=== PATIENT | male | born 1985 | race African-American/Black ===

== ENCOUNTER 2017-01-23 08:54 | Inpatient (IN) | payer BC ==
[~2017-01-23] VITALS: Ht 198.1 cm; Wt 141.8 kg
[~2017-01-23 08:54] MED LIST: CEFAZOLIN 1 GM INJ ONE
[2017-01-23 13:31] VITALS: BP 138/86; PULSE 60; RESP 16
--- NOTE | 2017-01-23 14:31 | HPN ---
Date/Time of Note Date/Time of Note DATE: 01/23/17 TIME: 14:29 Interval H&P Admission Note Pt. seen H&P reviewed: No system changes Neurosurgery Preop Note Pt seen and examined Extensive d/w patient about all available options including surgery vs no surgery. Anterior vs Posterior vs Ant/Pos (staged )procedure thoroughly discussed. All risk/complications 3-5% thoroughly discussed. All questions answered and no guarantees given. Pt agreed to proceed with staged procedure. Anterior L3-S1 today with Posterior fixation to follow nest Thursday at 0730. Dispo: ICU SONAL SALOMON MD Jan 23, 2017 14:31
[2017-01-23 14:52] VITALS: Ht 198.1 cm; Wt 141.8 kg
[2017-01-23] MEDS ORDERED: GELATIN SIZE 100 SPONGE ONE (15:07)
[2017-01-23] MEDS ORDERED: THROMBIN 5000 UNIT VIAL ONE (15:07)
[2017-01-23] MEDS ORDERED: HEPARIN 1000 UNITS/ML 10 ML INJ ONE (15:07)
[2017-01-23] MEDS ORDERED: SODIUM CL BACTERIOSTATIC 30 ML INJ ONE (15:08)
[2017-01-23] MEDS ORDERED: MIDAZOLAM 1 MG/ML 2 ML INJ ONE (15:08)
[2017-01-23] MEDS ORDERED: CEFAZOLIN 1 GM INJ ONE (15:08)
[2017-01-23] MEDS ORDERED: NALOXONE (0.4 MG/ML) INJ IV PRN (15:30)
[2017-01-23] MEDS ORDERED: HYDROCODONE/APAP (5/325) TAB PO PRN (15:30)
[2017-01-23] MEDS ORDERED: PHENYLephrine (100 MCG/ML) 5ML SYG ONE (15:41)
[2017-01-23] MEDS ORDERED: morphine 10 MG INJ ONE (16:31)
[2017-01-23] MEDS ORDERED: hydrALAzine 20 MG INJ ONE (16:46)
[2017-01-23] MEDS ORDERED: PROPOFOL 40 ML ONE (18:54)
[2017-01-23] MEDS ORDERED: ROCURONIUM 50 MG INJ ONE (18:54)
[2017-01-23] MEDS ORDERED: GLYCOPYRROLATE 0.4 MG INJ ONE (18:55)
[2017-01-23] MEDS ORDERED: NEOSTIGMINE 3 MG/3 ML SYRINGE ONE (18:55)
[2017-01-23] MEDS ORDERED: METOCLOPRAMIDE 10 MG INJ ONE (18:56)
[2017-01-23] MEDS ORDERED: ONDANSETRON 4 MG INJ ONE (18:56)
--- NOTE | 2017-01-23 18:57 | OPPN ---
Date/Time of Note Date/Time of Note DATE: 01/23/17 TIME: 18:54 Operative Report Preoperative Diagnosis Mechanical LBP and LE radiculopathy Postoperative Diagnosis Same Operation/Procedure Performed Anterior Lumbar fusion L3-S1 Surgeon see signature line office assistant malekmehr Anesthesia: general Estimated blood loss: 100 - 150 ml's Transfusion Required none Specimen sent, lumber disc Grafts/Implants cages and screws Complications none SONAL SALOMON MD Jan 23, 2017 18:57
--- NOTE | 2017-01-23 18:57 | OPPN ---
Date/Time of Note Date/Time of Note DATE: 01/23/17 TIME: 18:54 Operative Report Preoperative Diagnosis Mechanical LBP and LE radiculopathy Postoperative Diagnosis Same Operation/Procedure Performed Anterior Lumbar fusion L3-S1 Surgeon see signature line housekeeping assistant malekmehr Anesthesia: general Estimated blood loss: 100 - 150 ml's Transfusion Required none Specimen sent, lumber disc Grafts/Implants cages and screws Complications none SONAL SALOMON MD Jan 23, 2017 18:57
[2017-01-23] MEDS ORDERED: LIDOCAINE 2% (SDV) 5 ML INJ ONE (18:59)
[2017-01-23] MEDS ORDERED: MIDAZOLAM 1 MG/ML 2 ML INJ IV PRN (19:30)
[2017-01-23] MEDS ORDERED: morphine (1 MG/ML) 10ML SYRINGE IV PRN ×2 (19:30)
[2017-01-23] MEDS ORDERED: FENTAnyl 50 MCG/ML VIAL IV PRN (19:30)
[2017-01-23] MEDS ORDERED: DIPHENHYDRAMINE 50 MG INJ IV PRN (19:30)
[2017-01-23] MEDS ORDERED: HYDROmorphONE (0.2 MG/ML) 10ML SYG IV PRN ×2 (19:30)
[2017-01-23] MEDS ORDERED: ALBUTEROL 0.083% (NEB) 2.5 MG/3 ML AMP HHN PRN (19:30)
[2017-01-23] MEDS ORDERED: MEPERIDINE 25 MG INJ IV PRN (19:30)
[2017-01-23] MEDS ORDERED: METOCLOPRAMIDE 10 MG INJ IV PRN (19:30)
[2017-01-23] MEDS ORDERED: LORAZEPAM 2 MG INJ IV PRN (19:30)
[2017-01-23] MEDS ORDERED: ONDANSETRON 4 MG INJ IV PRN (19:30)
[2017-01-23 19:47] VITALS: PULSE 106
[2017-01-23 20:00] VITALS: BP 187/92; PULSE 102; PULSE 106; RESP 21
[2017-01-23] MEDS: NS + KCL 20 MEQ 1,000 ML IV SCH (20:20)
[2017-01-23 21:00] VITALS: BP 156/79; PULSE 105; RESP 15
[2017-01-23] MEDS ORDERED: hydrALAzine 20 MG INJ IV PRN (21:00)
[2017-01-23] MEDS: HYDROmorphONE 0.2 MG/ML PCA IV SCH (21:05)
[2017-01-23] MEDS: DOCUSATE SODIUM 100 MG CAP PO SCH ×2 (21:22→21:25)
[2017-01-23] MEDS: METOPROLOL 50 MG TAB PO SCH (21:22)
[2017-01-23 22:00] VITALS: BP 144/64; PULSE 114; RESP 21
[2017-01-23 23:00] VITALS: BP 154/65; PULSE 122; RESP 19
[2017-01-24] VITALS (21 sets, daily range): BP systolic 103–166; BP diastolic 58–133; PULSE 70–115; RESP 14–25
[2017-01-24] MEDS: NS + KCL 20 MEQ 1,000 ML IV SCH ×2 (01:30→21:23)
--- NOTE | 2017-01-24 04:57 | OPR ---
DATE OF OPERATION: PREOPERATIVE DIAGNOSIS: Degenerative disk disease, lumbosacral spine. POSTOPERATIVE DIAGNOSIS: Degenerative disk disease, lumbosacral spine. PROCEDURES: 1. Anterior retroperitoneal exposure and interbody fusion, lumbosacral spine. 2. Anterior retroperitoneal exposure and interbody fusion, L4-L5. 3. Anterior retroperitoneal exposure and interbody fusion, L5-S1. SURGEON: Dr. Mccall. ANESTHESIA: General. COSURGEON: Dr. Muro. CONSENT: Risks, benefits, complications, alternative therapies, high-risk nature of the operation w ere fully explained to the patient and the family. Consent obtained. Risks and benefits explained to the patient and family included but not limited to bleeding, infection, damage to the bowel, danna ge to the ureter, wound infection, wound dehiscence, need for further surgery, DVT, PE, loss of limb , loss of life, and others. All questions answered. OPERATIVE TECHNIQUE: The patient was placed in supine position, prepped and draped in the usual haris rile fashion. I made a 10 cm incision in the left lower quadrant to the left of the umbilicus. The incision was taken down to the subcutaneous tissue which was then opened using electrocautery. Th e anterior rectus sheath was opened in the direction of the wound. Posterior rectus sheath was open ed 3 cm superiorly. Bookwalter retractor was placed retracting the bowel contents to the right and left rectus muscle to the left. The left common iliac artery and vein, external iliac artery and ve in was dissected and the left iliolumbar veins and the middle sacral vessels and the lowest lumbar a rtery and vein were transected using titanium clips and ____ silk sutures. The exposure for L3-L4 a nd L4-L5 was obtained by retracting the left common iliac artery and vein and vena cava and aorta to the right. Exposure for L5-S1 was obtained by retracting the right and left common iliac artery an d vein laterally. We proceeded with diskectomy and placement of the new cage. Please refer to Dr. Muro's dictation for the details of that operation. After all the x-rays were satisfactorily read by Dr. Muro, needle count and sponge count were correct. No evidence of any bleeding was noted. T he wound was irrigated using antibiotic solution. Posterior rectus sheath was closed using 0 Vicryl suture in a running fashion. The anterior rectus sheath was irrigated again and closed with 2 laye rs of 2-0 Vicryl suture for subQ, 4-0 Monocryl suture for running subcuticular skin closure. Steri- Strips were applied. The patient tolerated the procedure well. Dictated By: ANAND JETT/CECY Conf#: [id number] DID#: [id number]
--- NOTE | 2017-01-24 08:37 | RADRPT ---
PROCEDURE: Intraoperative imaging of the lumbar spine with fluoroscopy. CLINICAL INDICATION: Back pain. Intraoperative. TECHNIQUE: 7 images of the lumbar spine were obtained in the operating room with an image intensif ier. No radiologist was in attendance. Fluoroscopy time is 10 seconds. COMPARISON: No prior study is available for comparison. FINDINGS: For the purposes of this report, the last apparent true disc level is considered to be L5-S1. Based on this, images demonstrate anterior fusion with screws at L3-4, L4-5, and L5-S1. IMPRESSION: 1. Intraoperative imaging of the lumbar spine. RPTAT: QQ .Ata Catherine MD, MD Date Time Electronically viewed and signed by .Ata Catherine MD, on 01/24/2017 08:37 .R/
--- NOTE | 2017-01-24 08:49 | RADRPT ---
PROCEDURE: CT L-Spine. CLINICAL INDICATION: Back pain ; postoperative TECHNIQUE: A CT of the lumbar spine was performed on a multidetector CT scanner utilizing axial im ages from the thoracic lumbar junction through the lumbar sacral junction. Sagittal and coronal ref ormatted images were made. The CTDIvol is 90mGy and the DLP is 2789mGycm. One or more of the followi ng dose reduction techniques were used: Automated exposure control, Adjustment of the mA and/or kV a ccording to patient size, and/or use of iterative reconstruction technique. COMPARISON: None available. FINDINGS: Status post anterior interbody fusion of L3 through S1. Hardware appears intact. Osseous erosive change from the inferior endplate of L3 extending superiorly to the left aspect of t he L3 vertebral body with surrounding sclerosis measures approximately 1.7 cm anteroposterior and 2 cm cranial-caudal. This could be due to postoperative change. No evidence of an acute lumbar vertebral compression fracture. 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 L1-2: The disk space height is maintained. Small disc bulging without significant foraminal narrowi ng. AP thecal sac diameter measures 9 mm. L2-3: The disk space height is maintained. Small disc bulge with mild bilateral foraminal narrowing . AP thecal sac diameter of 9 mm. L3-4: Surgical changes noted. Small to moderate circumferential disc bulging. AP thecal sac diameter of 8 mm. Mild bilateral foraminal narrowing. L4-5: Surgical changes noted. Small to moderate circumferential disc bulging. AP thecal sac diameter of 8 mm. Mild bilateral foraminal narrowing. L5-1: Surgical changes noted. Moderate disc bulging extending to the foramen bilaterally with modera te bilateral foraminal narrowing. AP thecal sac diameter of 9 mm. Small amount of retroperitoneal inflammatory stranding and retroperitoneal free air is presumably re lated to recent surgery. IMPRESSION: Status post anterior interbody fusion of L3 through S1. Hardware appears intact. Congenital narrowing of the lumbar spinal canal with superimposed disk bulging as detailed. RPTAT: AA .Marcin Fletcher MD, MD Date Time Electronically viewed and signed by .Marcin Fletcher MD, on 01/24/2017 08:48 .T/
--- NOTE | 2017-01-24 09:09 | PN ---
Date/Time of Note Date/Time of Note DATE: 01/24/17 TIME: 09:08 Assessment/Plan VTE Prophylaxis VTE Prophylaxis Intervention: other Lines/Catheters IV Catheter Type (from Nrsg): Peripheral IV Urinary Cath still in place: Yes Reason Cath still needed: skin wounds contaminated by urine Assessment/Plan Chief Complaint/Hosp Course 1) back pain - s/p anterior Lumbar fusion L3-S1 - postop care Problems: Subjective 24 Hr Interval Summary Free Text/Dictation Patient complain of back pain Exam/Review of Systems Vital Signs Vitals Vital Signs Date Time Temp Pulse Resp B/P Pulse Ox O2 Delivery O2 Flow Rate FiO2 01/24/17 06:00 94 22 150/72 98 Room Air 01/24/17 04:00 99.6 01/24/17 01:06 4.0 33 Intake and Output 01/23/17 01/23/17 01/24/17 15:00 23:00 07:00 Intake Total 1400 ml 1300 ml Output Total 850 ml 900 ml Balance 550 ml 400 ml Exam Constitutional: well developed Head: atraumatic, normocephalic Neck: supple Respiratory: clear to auscultation Cardiovascular: regular rate and rhythm Gastrointestinal: non-tender, soft Extremities: normal pulses Results Result Diagram: 01/24/17 0430 01/24/17 0430 Results 24 hrs Laboratory Tests Test 01/24/17 04:30 White Blood Count 11.8 H Red Blood Count 4.81 Hemoglobin 15.1 Hematocrit 44.6 Mean Corpuscular Volume 92.7 Mean Corpuscular Hemoglobin 31.4 Mean Corpuscular Hemoglobin Concent 33.9 Red Cell Distribution Width 12.0 Platelet Count 211 Mean Platelet Volume 10.6 H Neutrophils % 82.5 H Lymphocytes % 6.7 L Monocytes % 10.4 Eosinophils % 0.0 Basophils % 0.1 Nucleated Red Blood Cells % 0.0 Neutrophils # 9.7 H Lymphocytes # 0.8 Monocytes # 1.2 H Eosinophils # 0.0 Basophils # 0.0 Nucleated Red Blood Cells # 0.0 Sodium Level 140 Potassium Level 4.1 Chloride Level 106 Carbon Dioxide Level 26 Anion Gap 12 Blood Urea Nitrogen 11 Creatinine 1.07 Glucose Level 114 Calcium Level 8.9 Medications Medications Current Medications Acetaminophen/ Hydrocodone Bitart ([place] (5/325)) 2 tab Q4H PRN PO PAIN LEVEL 6 -10; Start 01/23/17 at 15:30 Docusate Sodium (Colace) 100 mg BID PO Last administered on 01/23/17 21:25; Admin Dose 100 MG; Start 01/23/17 at 15:30 Hydromorphone HCl (Dilaudid KAI WHAKARURUHAU) Q4PCA IV Last administered on 01/23/17 21: 05; Admin Dose 6 MG; Start 01/23/17 at 15:30 Naloxone HCl 0.2 mg 0.2 mg Q2M PRN IV RR 8 BREATHS/MIN OR LESS; Start at 15:30 Potassium Chloride/Sodium Chloride (NS-KCl 20 Meq) 1,000 ml @ 100 mls/hr Q10H IV Last administered on 01/23/17 20:20; Admin Dose 100 MLS/HR; Start at 15:30 Metoprolol Tartrate (Lopressor) 50 mg BID PO Last administered on 01/23/17 21 :22; Admin Dose 50 MG; Start 01/23/17 at 21:00 Hydralazine HCl (Apresoline) 20 mg Q4H PRN IV SBP > 170 Last administered on 22:39; Admin Dose 20 MG; Start 01/23/17 at 21:00 NII SCHUSTER Jan 24, 2017 09:09
[2017-01-24] MEDS: DOCUSATE SODIUM 100 MG CAP PO SCH ×2 (09:20→21:22)
[2017-01-24] MEDS: METOPROLOL 50 MG TAB PO SCH ×2 (09:23→21:22)
--- NOTE | 2017-01-24 09:56 | PN ---
Date/Time of Note Date/Time of Note DATE: 01/24/17 TIME: 09:52 Assessment/Plan VTE Prophylaxis VTE Prophylaxis Intervention: SCD's Lines/Catheters IV Catheter Type (from Nrsg): Peripheral IV Central line still needed: No Urinary Cath still in place: No Assessment/Plan Assessment/Plan Impression Mechanical LBP with LE radiculopathy s/p ALIF L3-S1 . POD #[address] Lspine stable with properly . Images reviewed with patient at bedside Plan okay to downgrade from NS point of view encourage IS x 10 WA LSO brace when OOB pt/ot with brace x 6 weeks stamping operator and ivf for now plan for posterior fixation on Thursday at 0730. OR did not have available time on Thursday. Subjective 24 Hr Interval Summary Free Text/Dictation S: s/p ALIF L3-S1. POD #1 Expected surgical site pain , well controlled with CONTRACT ACCOUNTANT low grade temp 99.4 Denies LE radic pain Exam/Review of Systems Vital Signs Vitals Vital Signs Date Time Temp Pulse Resp B/P Pulse Ox O2 Delivery O2 Flow Rate FiO2 01/24/17 06:00 94 22 150/72 98 Room Air 01/24/17 04:00 99.6 01/24/17 01:06 4.0 33 Intake and Output 01/23/17 01/23/17 01/24/17 15:00 23:00 07:00 Intake Total 1400 ml 1300 ml Output Total 850 ml 900 ml Balance 550 ml 400 ml Exam Neurological: other (MS: AAOX4 CN: PERRL M: FC x 4 , 5/5 strength S: Grossly intact, denies LE radic pain ) Results Result Diagram: 01/24/17 0430 01/24/17 0430 Results 24 hrs Laboratory Tests Test 01/24/17 04:30 White Blood Count 11.8 H Red Blood Count 4.81 Hemoglobin 15.1 Hematocrit 44.6 Mean Corpuscular Volume 92.7 Mean Corpuscular Hemoglobin 31.4 Mean Corpuscular Hemoglobin Concent 33.9 Red Cell Distribution Width 12.0 Platelet Count 211 Mean Platelet Volume 10.6 H Neutrophils % 82.5 H Lymphocytes % 6.7 L Monocytes % 10.4 Eosinophils % 0.0 Basophils % 0.1 Nucleated Red Blood Cells % 0.0 Neutrophils # 9.7 H Lymphocytes # 0.8 Monocytes # 1.2 H Eosinophils # 0.0 Basophils # 0.0 Nucleated Red Blood Cells # 0.0 Sodium Level 140 Potassium Level 4.1 Chloride Level 106 Carbon Dioxide Level 26 Anion Gap 12 Blood Urea Nitrogen 11 Creatinine 1.07 Glucose Level 114 Calcium Level 8.9 Medications Medications Current Medications Acetaminophen/ Hydrocodone Bitart ([place] (5/325)) 2 tab Q4H PRN PO PAIN LEVEL 6 -10; Start 01/23/17 at 15:30 Docusate Sodium (Colace) 100 mg BID PO Last administered on 01/24/17 09:20; Admin Dose 100 MG; Start 01/23/17 at 15:30 Hydromorphone HCl (Dilaudid CONTRACT ACCOUNTANT) Q4PCA IV Last administered on 01/23/17 21: 05; Admin Dose 6 MG; Start 01/23/17 at 15:30 Naloxone HCl 0.2 mg 0.2 mg Q2M PRN IV RR 8 BREATHS/MIN OR LESS; Start at 15:30 Potassium Chloride/Sodium Chloride (NS-KCl 20 Meq) 1,000 ml @ 100 mls/hr Q10H IV Last administered on 01/23/17 20:20; Admin Dose 100 MLS/HR; Start at 15:30 Metoprolol Tartrate (Lopressor) 50 mg BID PO Last administered on 01/24/17 09 :23; Admin Dose 50 MG; Start 01/23/17 at 21:00 Hydralazine HCl (Apresoline) 20 mg Q4H PRN IV SBP > 170 Last administered on 22:39; Admin Dose 20 MG; Start 01/23/17 at 21:00 HAZEL ACEVEDO NP Jan 24, 2017 09:56
--- NOTE | 2017-01-24 09:56 | PN ---
Date/Time of Note Date/Time of Note DATE: 01/24/17 TIME: 09:52 Assessment/Plan VTE Prophylaxis VTE Prophylaxis Intervention: SCD's Lines/Catheters IV Catheter Type (from Nrsg): Peripheral IV Central line still needed: No Urinary Cath still in place: No Assessment/Plan Assessment/Plan Impression Mechanical LBP with LE radiculopathy s/p ALIF L3-S1 . POD #[address] Lspine stable with properly . Images reviewed with patient at bedside Plan okay to downgrade from NS point of view encourage IS x 10 WA LSO brace when OOB pt/ot with brace x 6 weeks payroll director and ivf for now plan for posterior fixation on Thursday at 0730. OR did not have available time on Thursday. Subjective 24 Hr Interval Summary Free Text/Dictation S: s/p ALIF L3-S1. POD #1 Expected surgical site pain , well controlled with AIR HOSE COUPLER low grade temp 99.4 Denies LE radic pain Exam/Review of Systems Vital Signs Vitals Vital Signs Date Time Temp Pulse Resp B/P Pulse Ox O2 Delivery O2 Flow Rate FiO2 01/24/17 06:00 94 22 150/72 98 Room Air 01/24/17 04:00 99.6 01/24/17 01:06 4.0 33 Intake and Output 01/23/17 01/23/17 01/24/17 15:00 23:00 07:00 Intake Total 1400 ml 1300 ml Output Total 850 ml 900 ml Balance 550 ml 400 ml Exam Neurological: other (MS: AAOX4 CN: PERRL M: FC x 4 , 5/5 strength S: Grossly intact, denies LE radic pain ) Results Result Diagram: 01/24/17 0430 01/24/17 0430 Results 24 hrs Laboratory Tests Test 01/24/17 04:30 White Blood Count 11.8 H Red Blood Count 4.81 Hemoglobin 15.1 Hematocrit 44.6 Mean Corpuscular Volume 92.7 Mean Corpuscular Hemoglobin 31.4 Mean Corpuscular Hemoglobin Concent 33.9 Red Cell Distribution Width 12.0 Platelet Count 211 Mean Platelet Volume 10.6 H Neutrophils % 82.5 H Lymphocytes % 6.7 L Monocytes % 10.4 Eosinophils % 0.0 Basophils % 0.1 Nucleated Red Blood Cells % 0.0 Neutrophils # 9.7 H Lymphocytes # 0.8 Monocytes # 1.2 H Eosinophils # 0.0 Basophils # 0.0 Nucleated Red Blood Cells # 0.0 Sodium Level 140 Potassium Level 4.1 Chloride Level 106 Carbon Dioxide Level 26 Anion Gap 12 Blood Urea Nitrogen 11 Creatinine 1.07 Glucose Level 114 Calcium Level 8.9 Medications Medications Current Medications Acetaminophen/ Hydrocodone Bitart ([place] (5/325)) 2 tab Q4H PRN PO PAIN LEVEL 6 -10; Start 01/23/17 at 15:30 Docusate Sodium (Colace) 100 mg BID PO Last administered on 01/24/17 09:20; Admin Dose 100 MG; Start 01/23/17 at 15:30 Hydromorphone HCl (Dilaudid AIR HOSE COUPLER) Q4PCA IV Last administered on 01/23/17 21: 05; Admin Dose 6 MG; Start 01/23/17 at 15:30 Naloxone HCl 0.2 mg 0.2 mg Q2M PRN IV RR 8 BREATHS/MIN OR LESS; Start at 15:30 Potassium Chloride/Sodium Chloride (NS-KCl 20 Meq) 1,000 ml @ 100 mls/hr Q10H IV Last administered on 01/23/17 20:20; Admin Dose 100 MLS/HR; Start at 15:30 Metoprolol Tartrate (Lopressor) 50 mg BID PO Last administered on 01/24/17 09 :23; Admin Dose 50 MG; Start 01/23/17 at 21:00 Hydralazine HCl (Apresoline) 20 mg Q4H PRN IV SBP > 170 Last administered on 22:39; Admin Dose 20 MG; Start 01/23/17 at 21:00 HAZEL ACEVEDO NP Jan 24, 2017 09:56
[2017-01-25 01:55] VITALS: BP 138/67; PULSE 78; RESP 17
[2017-01-25 07:25] VITALS: BP 138/68; RESP 18
[2017-01-25] MEDS: NS + KCL 20 MEQ 1,000 ML IV SCH ×2 (09:01→17:44)
[2017-01-25] MEDS: DOCUSATE SODIUM 100 MG CAP PO SCH ×2 (09:11→21:24)
[2017-01-25] MEDS: METOPROLOL 50 MG TAB PO SCH ×2 (09:12→21:24)
[2017-01-25] MEDS: HYDROmorphONE 0.2 MG/ML PCA IV SCH (09:13)
--- NOTE | 2017-01-25 11:14 | PN ---
Date/Time of Note Date/Time of Note DATE: 01/25/17 TIME: 11:14 Assessment/Plan VTE Prophylaxis VTE Prophylaxis Intervention: other Lines/Catheters IV Catheter Type (from Nrsg): Peripheral IV Urinary Cath still in place: No Assessment/Plan Chief Complaint/Hosp Course 1) back pain - s/p anterior Lumbar fusion L3-S1 - postop care Problems: Subjective 24 Hr Interval Summary Free Text/Dictation Patient has back pain, doing ok, to have another procedure on Thursday Exam/Review of Systems Vital Signs Vitals Vital Signs Date Time Temp Pulse Resp B/P Pulse Ox O2 Delivery O2 Flow Rate FiO2 01/25/17 07:25 98.5 75 18 138/68 95 01/25/17 02:15 Nasal Cannula 2.0 01/24/17 15:57 21 Intake and Output 01/24/17 01/24/17 01/25/17 15:00 23:00 07:00 Intake Total 1220 ml 400 ml Output Total 805 ml 75 ml Balance 415 ml -75 ml 400 ml Exam Constitutional: well developed Head: atraumatic, normocephalic Neck: supple Respiratory: clear to auscultation Cardiovascular: regular rate and rhythm Gastrointestinal: non-tender, soft Extremities: normal pulses Results Result Diagram: 01/24/17 0430 01/24/17 0430 Results 24 hrs Laboratory Tests Test 01/25/17 01:52 Bedside Glucose 110 Medications Medications Current Medications Acetaminophen/ Hydrocodone Bitart ([place] (5/325)) 2 tab Q4H PRN PO PAIN LEVEL 6 -10; Start 01/23/17 at 15:30 Docusate Sodium (Colace) 100 mg BID PO Last administered on 01/25/17 09:11; Admin Dose 100 MG; Start 01/23/17 at 15:30 Hydromorphone HCl (Dilaudid WIRE DRAWING MACHINE OPERATOR) Q4PCA IV Last administered on 01/25/17 09: 13; Admin Dose 6 MG; Start 01/23/17 at 15:30 Naloxone HCl 0.2 mg 0.2 mg Q2M PRN IV RR 8 BREATHS/MIN OR LESS; Start at 15:30 Potassium Chloride/Sodium Chloride (NS-KCl 20 Meq) 1,000 ml @ 50 mls/hr Q20H IV Last administered on 01/24/17 21:23; Admin Dose 50 MLS/HR; Start at 15:30 Metoprolol Tartrate (Lopressor) 50 mg BID PO Last administered on 01/25/17 09 :12; Admin Dose 50 MG; Start 01/23/17 at 21:00 Hydralazine HCl (Apresoline) 20 mg Q4H PRN IV SBP > 170 Last administered on 22:39; Admin Dose 20 MG; Start 01/23/17 at 21:00 NII SCHUSTER Jan 25, 2017 11:14
--- NOTE | 2017-01-25 11:14 | PN ---
Date/Time of Note Date/Time of Note DATE: 01/25/17 TIME: 11:14 Assessment/Plan VTE Prophylaxis VTE Prophylaxis Intervention: other Lines/Catheters IV Catheter Type (from Nrsg): Peripheral IV Urinary Cath still in place: No Assessment/Plan Chief Complaint/Hosp Course 1) back pain - s/p anterior Lumbar fusion L3-S1 - postop care Problems: Subjective 24 Hr Interval Summary Free Text/Dictation Patient has back pain, doing ok, to have another procedure on Thursday Exam/Review of Systems Vital Signs Vitals Vital Signs Date Time Temp Pulse Resp B/P Pulse Ox O2 Delivery O2 Flow Rate FiO2 01/25/17 07:25 98.5 75 18 138/68 95 01/25/17 02:15 Nasal Cannula 2.0 01/24/17 15:57 21 Intake and Output 01/24/17 01/24/17 01/25/17 15:00 23:00 07:00 Intake Total 1220 ml 400 ml Output Total 805 ml 75 ml Balance 415 ml -75 ml 400 ml Exam Constitutional: well developed Head: atraumatic, normocephalic Neck: supple Respiratory: clear to auscultation Cardiovascular: regular rate and rhythm Gastrointestinal: non-tender, soft Extremities: normal pulses Results Result Diagram: 01/24/17 0430 01/24/17 0430 Results 24 hrs Laboratory Tests Test 01/25/17 01:52 Bedside Glucose 110 Medications Medications Current Medications Acetaminophen/ Hydrocodone Bitart ([place] (5/325)) 2 tab Q4H PRN PO PAIN LEVEL 6 -10; Start 01/23/17 at 15:30 Docusate Sodium (Colace) 100 mg BID PO Last administered on 01/25/17 09:11; Admin Dose 100 MG; Start 01/23/17 at 15:30 Hydromorphone HCl (Dilaudid HELIX COIL WINDER) Q4PCA IV Last administered on 01/25/17 09: 13; Admin Dose 6 MG; Start 01/23/17 at 15:30 Naloxone HCl 0.2 mg 0.2 mg Q2M PRN IV RR 8 BREATHS/MIN OR LESS; Start at 15:30 Potassium Chloride/Sodium Chloride (NS-KCl 20 Meq) 1,000 ml @ 50 mls/hr Q20H IV Last administered on 01/24/17 21:23; Admin Dose 50 MLS/HR; Start at 15:30 Metoprolol Tartrate (Lopressor) 50 mg BID PO Last administered on 01/25/17 09 :12; Admin Dose 50 MG; Start 01/23/17 at 21:00 Hydralazine HCl (Apresoline) 20 mg Q4H PRN IV SBP > 170 Last administered on 22:39; Admin Dose 20 MG; Start 01/23/17 at 21:00 NII SCHUSTER Jan 25, 2017 11:14
--- NOTE | 2017-01-25 12:43 | PN ---
Date/Time of Note Date/Time of Note DATE: 01/25/17 TIME: 12:41 Assessment/Plan VTE Prophylaxis VTE Prophylaxis Intervention: ambulation, SCD's Lines/Catheters IV Catheter Type (from Nrsg): Peripheral IV Central line still needed: No Urinary Cath still in place: No Assessment/Plan Assessment/Plan s/p ALIF L3-S1 . POD #2 doing well HTN - stable ambulating well voiding well denies LE radic pain Plan cont supportive care IS x x 10 when awake pt/ot with LSO brace Posterior fixation L3-S1 on Thursday. Subjective 24 Hr Interval Summary Free Text/Dictation S: s/p ALIF L3-S1. POD #2 doing well with pt/ot low grade , encouraged IS x 10 denies LE radic ain Exam/Review of Systems Vital Signs Vitals Vital Signs Date Time Temp Pulse Resp B/P Pulse Ox O2 Delivery O2 Flow Rate FiO2 01/25/17 07:45 Nasal Cannula 2.0 01/25/17 07:25 98.5 75 18 138/68 95 01/24/17 15:57 21 Intake and Output 01/24/17 01/24/17 01/25/17 15:00 23:00 07:00 Intake Total 1220 ml 400 ml Output Total 805 ml 75 ml Balance 415 ml -75 ml 400 ml Exam Neurological: other (MS: AAOX4 CN: PERRL M: FC x 4 , 5/5 strength) Results Result Diagram: 01/24/17 0430 01/24/17 0430 Results 24 hrs Laboratory Tests Test 01/25/17 01:52 Bedside Glucose 110 Medications Medications Current Medications Acetaminophen/ Hydrocodone Bitart ([place] (5/325)) 2 tab Q4H PRN PO PAIN LEVEL 6 -10; Start 01/23/17 at 15:30 Docusate Sodium (Colace) 100 mg BID PO Last administered on 01/25/17 09:11; Admin Dose 100 MG; Start 01/23/17 at 15:30 Hydromorphone HCl (Dilaudid NET PROGRAMMER ANALYST) Q4PCA IV Last administered on 01/25/17 09: 13; Admin Dose 6 MG; Start 01/23/17 at 15:30 Naloxone HCl 0.2 mg 0.2 mg Q2M PRN IV RR 8 BREATHS/MIN OR LESS; Start at 15:30 Potassium Chloride/Sodium Chloride (NS-KCl 20 Meq) 1,000 ml @ 50 mls/hr Q20H IV Last administered on 01/24/17 21:23; Admin Dose 50 MLS/HR; Start at 15:30 Metoprolol Tartrate (Lopressor) 50 mg BID PO Last administered on 01/25/17 09 :12; Admin Dose 50 MG; Start 01/23/17 at 21:00 Hydralazine HCl (Apresoline) 20 mg Q4H PRN IV SBP > 170 Last administered on 22:39; Admin Dose 20 MG; Start 01/23/17 at 21:00 HAZEL ACEVEDO NP Jan 25, 2017 12:43
[2017-01-25 14:30] VITALS: BP 163/68; PULSE 76; RESP 20
[2017-01-25 14:47] VITALS: BP_SYST 91; RESP 18
[2017-01-25 15:00] VITALS: BP 158/69; PULSE 78; RESP 20
[2017-01-25 19:52] VITALS: BP 141/78; RESP 18
[2017-01-26 01:57] VITALS: BP 147/82; RESP 18
[2017-01-26 07:20] VITALS: BP 129/64; RESP 20
[2017-01-26] MEDS: DOCUSATE SODIUM 100 MG CAP PO SCH ×2 (09:00→20:20)
[2017-01-26] MEDS: METOPROLOL 50 MG TAB PO SCH ×2 (09:02→20:20)
--- NOTE | 2017-01-26 11:11 | PN ---
Date/Time of Note Date/Time of Note DATE: 01/26/17 TIME: 11:08 Assessment/Plan VTE Prophylaxis VTE Prophylaxis Intervention: SCD's Lines/Catheters IV Catheter Type (from Nrsg): Peripheral IV Urinary Cath still in place: No Assessment/Plan Assessment/Plan s/p L3-S1 ALIF. Doing well with pt/ot low grade temp, encourage IS x 10 denie LE radic pain plan Cont supportive care npo after mn cbc,bmp,pt/ptt plan for posterior L3-S1 ISF with possible decompression Subjective 24 Hr Interval Summary Free Text/Dictation S: NAD denies LE radic pain Exam/Review of Systems Vital Signs Vitals Vital Signs Date Time Temp Pulse Resp B/P Pulse Ox O2 Delivery O2 Flow Rate FiO2 01/26/17 07:20 98.1 68 20 129/64 97 01/25/17 21:00 Nasal Cannula 2.0 01/24/17 15:57 21 Intake and Output 01/25/17 01/25/17 01/26/17 15:00 23:00 07:00 Intake Total 400 ml 700 ml 1230 ml Output Total 1300 ml 1000 ml Balance -900 ml 700 ml 230 ml Exam Psych: no complaints Neurological: other (MS: AAOX4 CN: PERRL M: FC x 4 , 5/5 strength S: denies LE radic pain ) Results Result Diagram: 01/24/17 0430 01/24/17 0430 Medications Medications Current Medications Acetaminophen/ Hydrocodone Bitart ([place] (5/325)) 2 tab Q4H PRN PO PAIN LEVEL 6 -10; Start 01/23/17 at 15:30 Docusate Sodium (Colace) 100 mg BID PO Last administered on 01/25/17 21:24; Admin Dose 100 MG; Start 01/23/17 at 15:30 Hydromorphone HCl (Dilaudid CERTIFIED FORKLIFT OPERATOR) Q4PCA IV Last administered on 01/25/17 09: 13; Admin Dose 6 MG; Start 01/23/17 at 15:30 Naloxone HCl 0.2 mg 0.2 mg Q2M PRN IV RR 8 BREATHS/MIN OR LESS; Start at 15:30 Potassium Chloride/Sodium Chloride (NS-KCl 20 Meq) 1,000 ml @ 50 mls/hr Q20H IV Last administered on 01/25/17 17:44; Admin Dose 50 MLS/HR; Start at 15:30 Metoprolol Tartrate (Lopressor) 50 mg BID PO Last administered on 01/26/17 09 :02; Admin Dose 50 MG; Start 01/23/17 at 21:00 Hydralazine HCl (Apresoline) 20 mg Q4H PRN IV SBP > 170 Last administered on 22:39; Admin Dose 20 MG; Start 01/23/17 at 21:00 HAZEL ACEVEDO NP Jan 26, 2017 11:10
--- NOTE | 2017-01-26 11:11 | PN ---
Date/Time of Note Date/Time of Note DATE: 01/26/17 TIME: 11:08 Assessment/Plan VTE Prophylaxis VTE Prophylaxis Intervention: SCD's Lines/Catheters IV Catheter Type (from Nrsg): Peripheral IV Urinary Cath still in place: No Assessment/Plan Assessment/Plan s/p L3-S1 ALIF. Doing well with pt/ot low grade temp, encourage IS x 10 denie LE radic pain plan Cont supportive care npo after mn cbc,bmp,pt/ptt plan for posterior L3-S1 ISF with possible decompression Subjective 24 Hr Interval Summary Free Text/Dictation S: NAD denies LE radic pain Exam/Review of Systems Vital Signs Vitals Vital Signs Date Time Temp Pulse Resp B/P Pulse Ox O2 Delivery O2 Flow Rate FiO2 01/26/17 07:20 98.1 68 20 129/64 97 01/25/17 21:00 Nasal Cannula 2.0 01/24/17 15:57 21 Intake and Output 01/25/17 01/25/17 01/26/17 15:00 23:00 07:00 Intake Total 400 ml 700 ml 1230 ml Output Total 1300 ml 1000 ml Balance -900 ml 700 ml 230 ml Exam Psych: no complaints Neurological: other (MS: AAOX4 CN: PERRL M: FC x 4 , 5/5 strength S: denies LE radic pain ) Results Result Diagram: 01/24/17 0430 01/24/17 0430 Medications Medications Current Medications Acetaminophen/ Hydrocodone Bitart ([place] (5/325)) 2 tab Q4H PRN PO PAIN LEVEL 6 -10; Start 01/23/17 at 15:30 Docusate Sodium (Colace) 100 mg BID PO Last administered on 01/25/17 21:24; Admin Dose 100 MG; Start 01/23/17 at 15:30 Hydromorphone HCl (Dilaudid [employer]) Q4PCA IV Last administered on 01/25/17 09: 13; Admin Dose 6 MG; Start 01/23/17 at 15:30 Naloxone HCl 0.2 mg 0.2 mg Q2M PRN IV RR 8 BREATHS/MIN OR LESS; Start at 15:30 Potassium Chloride/Sodium Chloride (NS-KCl 20 Meq) 1,000 ml @ 50 mls/hr Q20H IV Last administered on 01/25/17 17:44; Admin Dose 50 MLS/HR; Start at 15:30 Metoprolol Tartrate (Lopressor) 50 mg BID PO Last administered on 01/26/17 09 :02; Admin Dose 50 MG; Start 01/23/17 at 21:00 Hydralazine HCl (Apresoline) 20 mg Q4H PRN IV SBP > 170 Last administered on 22:39; Admin Dose 20 MG; Start 01/23/17 at 21:00 HAZEL ACEVEDO NP Jan 26, 2017 11:10
[2017-01-26] MEDS: NS + KCL 20 MEQ 1,000 ML IV SCH (14:22)
[2017-01-26 14:45] VITALS: BP 143/71; RESP 20
--- NOTE | 2017-01-26 16:03 | PN ---
Date/Time of Note Date/Time of Note DATE: 01/26/17 TIME: 15:58 Assessment/Plan VTE Prophylaxis VTE Prophylaxis Intervention: SCD's Lines/Catheters IV Catheter Type (from Nrs): Peripheral IV Urinary Cath still in place: No Assessment/Plan Chief Complaint/Hosp Course Patient is awake alert, pain is well controlled on Dilaudid BUNDLE WRAPPER. Problems: Assessment/Plan -Low back pain and left extremity radiculopathy. Status post anterior lumbar fusion of L3-S1 by Dr. Muro. Pending posterior fixator fixation tomorrow. Continue Dilaudid BUNDLE WRAPPER for pain and Zofran as needed for nausea. -Hypertension, continue metoprolol. -Obesity with BMI of 36. Further recommendations based on clinical course. Plan of care discussed with Dr. Reaves Exam/Review of Systems Vital Signs Vitals Vital Signs Date Time Temp Pulse Resp B/P Pulse Ox O2 Delivery O2 Flow Rate FiO2 01/26/17 14:45 98.1 63 20 143/71 96 01/25/17 21:00 Nasal Cannula 2.0 01/24/17 15:57 21 Intake and Output 01/25/17 01/25/17 01/26/17 15:00 23:00 07:00 Intake Total 400 ml 700 ml 1230 ml Output Total 1300 ml 1000 ml Balance -900 ml 700 ml 230 ml Exam Constitutional: alert, oriented Head: normocephalic Neck: supple Respiratory: normal air movement Cardiovascular: nl pulses Gastrointestinal: non-tender, other (s/p surgery), soft Extremities: normal pulses Neurological: nl mental status Results Result Diagram: 01/26/17 1157 01/26/17 1157 Results 24 hrs Laboratory Tests Test 01/26/17 11:57 White Blood Count 12.4 H Red Blood Count 4.46 L Hemoglobin 13.8 L Hematocrit 41.7 L Mean Corpuscular Volume 93.5 Mean Corpuscular Hemoglobin 30.9 Mean Corpuscular Hemoglobin Concent 33.1 Red Cell Distribution Width 11.8 Platelet Count 201 Mean Platelet Volume 10.4 Neutrophils % 78.4 H Lymphocytes % 10.0 L Monocytes % 10.7 Eosinophils % 0.2 Basophils % 0.2 Nucleated Red Blood Cells % 0.0 Neutrophils # 9.7 H Lymphocytes # 1.2 Monocytes # 1.3 H Eosinophils # 0.0 Basophils # 0.0 Nucleated Red Blood Cells # 0.0 Prothrombin Time 14.4 H Prothrombin Time Ratio 1.1 INR International Normalized Ratio 1.12 Activated Partial Thromboplast Time 31.4 Sodium Level 139 Potassium Level 4.1 Chloride Level 103 Carbon Dioxide Level 29 Anion Gap 11 Blood Urea Nitrogen 14 Creatinine 1.01 Glucose Level 102 Calcium Level 8.8 Medications Medications Current Medications Acetaminophen/ Hydrocodone Bitart ([place] (5/325)) 2 tab Q4H PRN PO PAIN LEVEL 6 -10; Start 01/23/17 at 15:30 Docusate Sodium (Colace) 100 mg BID PO Last administered on 01/25/17 21:24; Admin Dose 100 MG; Start 01/23/17 at 15:30 Hydromorphone HCl (Dilaudid BUNDLE WRAPPER) Q4PCA IV Last administered on 01/25/17 09: 13; Admin Dose 6 MG; Start 01/23/17 at 15:30 Naloxone HCl 0.2 mg 0.2 mg Q2M PRN IV RR 8 BREATHS/MIN OR LESS; Start at 15:30 Potassium Chloride/Sodium Chloride (NS-KCl 20 Meq) 1,000 ml @ 50 mls/hr Q20H IV Last administered on 01/26/17 14:22; Admin Dose 50 MLS/HR; Start at 15:30 Metoprolol Tartrate (Lopressor) 50 mg BID PO Last administered on 01/26/17 09 :02; Admin Dose 50 MG; Start 01/23/17 at 21:00 Hydralazine HCl (Apresoline) 20 mg Q4H PRN IV SBP > 170 Last administered on 22:39; Admin Dose 20 MG; Start 01/23/17 at 21:00 SOLOMON DEAL Jan 26, 2017 16:03
--- NOTE | 2017-01-26 16:03 | PN ---
Date/Time of Note Date/Time of Note DATE: 01/26/17 TIME: 15:58 Assessment/Plan VTE Prophylaxis VTE Prophylaxis Intervention: SCD's Lines/Catheters IV Catheter Type (from Nrs): Peripheral IV Urinary Cath still in place: No Assessment/Plan Chief Complaint/Hosp Course Patient is awake alert, pain is well controlled on Dilaudid ACCOUNTING ADMINISTRATOR. Problems: Assessment/Plan -Low back pain and left extremity radiculopathy. Status post anterior lumbar fusion of L3-S1 by Dr. Muro. Pending posterior fixator fixation tomorrow. Continue Dilaudid ACCOUNTING ADMINISTRATOR for pain and Zofran as needed for nausea. -Hypertension, continue metoprolol. -Obesity with BMI of 36. Further recommendations based on clinical course. Plan of care discussed with Dr. Reaves Exam/Review of Systems Vital Signs Vitals Vital Signs Date Time Temp Pulse Resp B/P Pulse Ox O2 Delivery O2 Flow Rate FiO2 01/26/17 14:45 98.1 63 20 143/71 96 01/25/17 21:00 Nasal Cannula 2.0 01/24/17 15:57 21 Intake and Output 01/25/17 01/25/17 01/26/17 15:00 23:00 07:00 Intake Total 400 ml 700 ml 1230 ml Output Total 1300 ml 1000 ml Balance -900 ml 700 ml 230 ml Exam Constitutional: alert, oriented Head: normocephalic Neck: supple Respiratory: normal air movement Cardiovascular: nl pulses Gastrointestinal: non-tender, other (s/p surgery), soft Extremities: normal pulses Neurological: nl mental status Results Result Diagram: 01/26/17 1157 01/26/17 1157 Results 24 hrs Laboratory Tests Test 01/26/17 11:57 White Blood Count 12.4 H Red Blood Count 4.46 L Hemoglobin 13.8 L Hematocrit 41.7 L Mean Corpuscular Volume 93.5 Mean Corpuscular Hemoglobin 30.9 Mean Corpuscular Hemoglobin Concent 33.1 Red Cell Distribution Width 11.8 Platelet Count 201 Mean Platelet Volume 10.4 Neutrophils % 78.4 H Lymphocytes % 10.0 L Monocytes % 10.7 Eosinophils % 0.2 Basophils % 0.2 Nucleated Red Blood Cells % 0.0 Neutrophils # 9.7 H Lymphocytes # 1.2 Monocytes # 1.3 H Eosinophils # 0.0 Basophils # 0.0 Nucleated Red Blood Cells # 0.0 Prothrombin Time 14.4 H Prothrombin Time Ratio 1.1 INR International Normalized Ratio 1.12 Activated Partial Thromboplast Time 31.4 Sodium Level 139 Potassium Level 4.1 Chloride Level 103 Carbon Dioxide Level 29 Anion Gap 11 Blood Urea Nitrogen 14 Creatinine 1.01 Glucose Level 102 Calcium Level 8.8 Medications Medications Current Medications Acetaminophen/ Hydrocodone Bitart ([place] (5/325)) 2 tab Q4H PRN PO PAIN LEVEL 6 -10; Start 01/23/17 at 15:30 Docusate Sodium (Colace) 100 mg BID PO Last administered on 01/25/17 21:24; Admin Dose 100 MG; Start 01/23/17 at 15:30 Hydromorphone HCl (Dilaudid ACCOUNTING ADMINISTRATOR) Q4PCA IV Last administered on 01/25/17 09: 13; Admin Dose 6 MG; Start 01/23/17 at 15:30 Naloxone HCl 0.2 mg 0.2 mg Q2M PRN IV RR 8 BREATHS/MIN OR LESS; Start at 15:30 Potassium Chloride/Sodium Chloride (NS-KCl 20 Meq) 1,000 ml @ 50 mls/hr Q20H IV Last administered on 01/26/17 14:22; Admin Dose 50 MLS/HR; Start at 15:30 Metoprolol Tartrate (Lopressor) 50 mg BID PO Last administered on 01/26/17 09 :02; Admin Dose 50 MG; Start 01/23/17 at 21:00 Hydralazine HCl (Apresoline) 20 mg Q4H PRN IV SBP > 170 Last administered on 22:39; Admin Dose 20 MG; Start 01/23/17 at 21:00 SOLOMON DEAL Jan 26, 2017 16:03
--- NOTE | 2017-01-26 16:11 | RADRPT ---
PROCEDURE: XR Chest. CLINICAL INDICATION: Preoperative. Hypertension and obesity. TECHNIQUE: Single frontal view. COMPARISON: None. FINDINGS: The lungs are clear. The heart size is normal. There is no pleural effusion. There is no pneumothorax. IMPRESSION: 1. Normal chest radiograph. RPTAT: QQ .Ata Catherine MD, MD Date Time Electronically viewed and signed by .Ata Catherine MD, on 01/26/2017 16:10 .R/
[2017-01-26 19:54] VITALS: BP 143/79; RESP 16
[2017-01-26] MEDS ORDERED: CALCIUM CARBONATE 500 MG CHEW TAB PO PRN (21:30)
[2017-01-27] VITALS (24 sets, daily range): BP systolic 132–164; BP diastolic 69–84; PULSE 71–99; RESP 14–22
[2017-01-27] MEDS: NS + KCL 20 MEQ 1,000 ML IV SCH (05:41)
[2017-01-27] MEDS ORDERED: MIDAZOLAM 1 MG/ML 2 ML INJ ONE (06:22)
[2017-01-27] MEDS ORDERED: FENTAnyl 50 MCG/ML VIAL ONE ×2 (06:22→09:55)
[2017-01-27] MEDS ORDERED: GLYCOPYRROLATE 1 MG INJ ONE (06:22)
[2017-01-27] MEDS ORDERED: LIDOCAINE 2% (SDV) 5 ML INJ ONE (06:22)
[2017-01-27] MEDS ORDERED: PROPOFOL 20 ML ONE (06:22)
[2017-01-27] MEDS ORDERED: NEOSTIGMINE 3 MG/3 ML SYRINGE ONE (06:22)
[2017-01-27] MEDS ORDERED: ROCURONIUM 50 MG INJ ONE (06:22)
[2017-01-27] MEDS ORDERED: DEXAMETHASONE 4 MG/ML 1 ML INJ ONE (06:23)
[2017-01-27] MEDS ORDERED: SUGAMMADEX SODIUM 200 MG/2 ML VIAL IV ONE (06:24)
[2017-01-27] MEDS ORDERED: ONDANSETRON 4 MG INJ ONE (06:24)
[2017-01-27] MEDS ORDERED: SUCCINYLCHOLINE CHLORIDE 100 MG/5 ML SYG IV ONE (06:28)
[2017-01-27] MEDS ORDERED: LABETALOL HCL 20MG INJ IV PRN (06:30)
[2017-01-27] MEDS ORDERED: ATROPINE 1 MG/10 ML SYRINGE IV PRN (06:30)
[2017-01-27] MEDS ORDERED: HYDROmorphONE (0.2 MG/ML) 10ML SYG IV PRN ×2 (06:30)
[2017-01-27] MEDS ORDERED: hydrALAzine 20 MG INJ IV PRN (06:30)
[2017-01-27] MEDS ORDERED: FENTAnyl 50 MCG/ML VIAL IV PRN ×2 (06:30)
[2017-01-27] MEDS ORDERED: EPHEDrine SULFATE 50 MG/5 ML SYG IV PRN (06:30)
[2017-01-27] MEDS ORDERED: DIPHENHYDRAMINE 50 MG INJ IV PRN (06:30)
[2017-01-27] MEDS ORDERED: OXYCODONE/ACETAMINOPHEN (5/325) TAB PO PRN ×2 (06:30)
[2017-01-27] MEDS ORDERED: morphine (1 MG/ML) 10ML SYRINGE IV PRN ×3 (06:30)
[2017-01-27] MEDS ORDERED: MEPERIDINE 25 MG INJ IV PRN (06:30)
[2017-01-27] MEDS ORDERED: ONDANSETRON 4 MG INJ IV PRN (06:30)
[2017-01-27] MEDS ORDERED: MIDAZOLAM 1 MG/ML 2 ML INJ IV PRN (06:30)
[2017-01-27] MEDS ORDERED: PROPOFOL 100 ML ONE (06:33)
[2017-01-27] MEDS ORDERED: GELATIN SIZE 100 SPONGE ONE (06:52)
[2017-01-27] MEDS ORDERED: THROMBIN 5000 UNIT VIAL ONE (06:53)
[2017-01-27] MEDS ORDERED: ROPIVACAINE 0.5 % 30 ML VIAL ONE ×2 (06:53→08:38)
--- NOTE | 2017-01-27 07:49 | HPN ---
Date/Time of Note Date/Time of Note DATE: 01/27/17 TIME: 07:47 Interval H&P Admission Note Pt. seen H&P reviewed: No system changes Neurosurgery Preop Note Pt Seen and examined Extensive d/w patient and about all available options including surgery vs no surgery. Overall risk/complications 3-5% thoroughly discussed. All questions answered and no guarantees given. Pt cont. to have deny LE radiculopathy at this time. Proceed with posterior L3-S1 ISF with possible decompression. SONAL SALOMON MD Jan 27, 2017 07:49
[2017-01-27] MEDS: METOPROLOL 50 MG TAB PO SCH ×3 (08:33→20:47)
[2017-01-27] MEDS: DOCUSATE SODIUM 100 MG CAP PO SCH ×2 (08:33→21:00)
[2017-01-27] MEDS ORDERED: LABETALOL HCL 20MG INJ ONE (08:56)
[2017-01-27] MEDS ORDERED: hydrALAzine 20 MG INJ ONE (08:57)
--- NOTE | 2017-01-27 09:50 | OPPN ---
Date/Time of Note Date/Time of Note DATE: 01/27/17 TIME: 09:48 Operative Report Preoperative Diagnosis LBP with Radiculoapthy Postoperative Diagnosis same Operation/Procedure Performed Posterior L3-S1 ISF Surgeon see signature line medical assistant secretary ROBI Carter, ROBERTP-BC Anesthesia: general Estimated blood loss: 50 - 100 ml's Transfusion Required none Specimen none Grafts/Implants none Complications none SONAL SALOMON MD Jan 27, 2017 09:50
--- NOTE | 2017-01-27 09:50 | OPPN ---
Date/Time of Note Date/Time of Note DATE: 01/27/17 TIME: 09:48 Operative Report Preoperative Diagnosis LBP with Radiculoapthy Postoperative Diagnosis same Operation/Procedure Performed Posterior L3-S1 ISF Surgeon see signature line loan officer assistant ROBI Carter, ROBERTP-BC Anesthesia: general Estimated blood loss: 50 - 100 ml's Transfusion Required none Specimen none Grafts/Implants none Complications none SONAL SALOMON MD Jan 27, 2017 09:50
[2017-01-27] MEDS: HYDROmorphONE (0.2 MG/ML) 10ML SYG IV PRN ×4 (10:20→10:40)
--- NOTE | 2017-01-27 10:55 | RADRPT ---
PROCEDURE: Intraoperative imaging of the lumbar spine with fluoroscopy. CLINICAL INDICATION: Back pain. Intraoperative. TECHNIQUE: Four images of the lumbar spine were obtained in the operating room with an image inten sifier. No radiologist was in attendance. Fluoroscopy time is 10.2 seconds . COMPARISON: No prior study is available for comparison. FINDINGS: For the purposes of this report, the last apparent true disc level is considered to be L5-S1. Based on this, images demonstrate anterior and posterior fusion at L3 - L4 - L5 - S1 with hardware noted. IMPRESSION: 1. Intraoperative imaging of the lumbar spine. RPTAT: QQ .Ata Catherine MD, MD Date Time Electronically viewed and signed by .Ata Catherine MD, on 01/27/2017 10:54 .R/
[2017-01-27] MEDS: HYDROmorphONE 0.2 MG/ML PCA IV SCH (11:40)
--- NOTE | 2017-01-27 14:56 | RADRPT ---
Vent Rate: 68 bpm RR Interval: 0 msec AL Interval: 152 msec QRS Duration: 92 msec QT Interval: 376 msec QTC Interval: 399 msec P-R-T [place]: 48 - 30 - 52 degrees Normal sinus rhythm Normal ECG Electronically Signed By: Shahid Dumont [id number]
--- NOTE | 2017-01-27 17:26 | PN ---
Date/Time of Note Date/Time of Note DATE: 01/27/17 TIME: 17:21 Assessment/Plan VTE Prophylaxis VTE Prophylaxis Intervention: SCD's Lines/Catheters IV Catheter Type (from Nrsg): Peripheral IV Urinary Cath still in place: Yes Reason Cath still needed: urinary retention Assessment/Plan Chief Complaint/Hosp Course Patient is s/p posterior fixation surgery today, using Dilaudid FIELD ARTILLERY CANNONEER. Stable VS. Assessment/Plan -Low back pain and left extremity radiculopathy. Status post anterior lumbar fusion of L3-S1 on 01/23 S/p posterior L3-S1 ISF on 01/[address] Muro. Continue Dilaudid FIELD ARTILLERY CANNONEER for pain and Zofran as needed for nausea. -Hypertension, continue metoprolol. -Obesity with BMI of 36. Further recommendations based on clinical course. Plan of care discussed with Dr. Reaves Problems: Exam/Review of Systems Vital Signs Vitals Vital Signs Date Time Temp Pulse Resp B/P Pulse Ox O2 Delivery O2 Flow Rate FiO2 01/27/17 17:00 16 01/27/17 14:30 73 145/73 97 Room Air 01/27/17 11:45 98.7 01/27/17 10:37 2.0 01/24/17 15:57 21 Intake and Output 01/26/17 01/26/17 01/27/17 15:00 23:00 07:00 Intake Total 950 ml 1575 ml Balance 950 ml 1575 ml Exam Constitutional: alert Head: normocephalic Neck: supple Respiratory: normal air movement Cardiovascular: nl pulses Gastrointestinal: non-tender, other (s/p surgery), soft Extremities: normal pulses Neurological: nl mental status Skin: other (s/p surgery roberto carlos ding JP) Results Result Diagram: 01/27/17 0600 01/27/17 0600 Results 24 hrs Laboratory Tests Test 01/27/17 06:00 White Blood Count 10.4 Red Blood Count 4.40 L Hemoglobin 13.4 L Hematocrit 40.7 L Mean Corpuscular Volume 92.5 Mean Corpuscular Hemoglobin 30.5 Mean Corpuscular Hemoglobin Concent 32.9 Red Cell Distribution Width 11.6 Platelet Count 228 Mean Platelet Volume 10.2 Neutrophils % 70.0 Lymphocytes % 16.8 Monocytes % 11.5 H Eosinophils % 1.0 Basophils % 0.2 Nucleated Red Blood Cells % 0.0 Neutrophils # 7.3 Lymphocytes # 1.8 Monocytes # 1.2 H Eosinophils # 0.1 Basophils # 0.0 Nucleated Red Blood Cells # 0.0 Prothrombin Time 14.0 Prothrombin Time Ratio 1.1 INR International Normalized Ratio 1.08 Activated Partial Thromboplast Time 29.2 Sodium Level 140 Potassium Level 4.4 Chloride Level 104 Carbon Dioxide Level 29 Anion Gap 11 Blood Urea Nitrogen 16 Creatinine 1.14 Glucose Level 102 Calcium Level 8.9 Medications Medications Current Medications Acetaminophen/ Hydrocodone Bitart ([place] (5/325)) 2 tab Q4H PRN PO PAIN LEVEL 6 -10; Start 01/23/17 at 15:30 Docusate Sodium (Colace) 100 mg BID PO Last administered on 01/26/17 20:20; Admin Dose 100 MG; Start 01/23/17 at 15:30 Hydromorphone HCl (Dilaudid FIELD ARTILLERY CANNONEER) Q4PCA IV Last administered on 01/27/17 11: 40; Admin Dose 6 MG; Start 01/23/17 at 15:30 Naloxone HCl 0.2 mg 0.2 mg Q2M PRN IV RR 8 BREATHS/MIN OR LESS; Start at 15:30 Potassium Chloride/Sodium Chloride (NS-KCl 20 Meq) 1,000 ml @ 50 mls/hr Q20H IV Last administered on 01/27/17 05:41; Admin Dose 50 MLS/HR; Start at 15:30 Metoprolol Tartrate (Lopressor) 50 mg BID PO Last administered on 01/27/17 12 :34; Admin Dose 50 MG; Start 01/23/17 at 21:00 Hydralazine HCl (Apresoline) 20 mg Q4H PRN IV SBP > 170 Last administered on 22:39; Admin Dose 20 MG; Start 01/23/17 at 21:00 Calcium Carbonate (Tums) 1,000 mg Q4 PRN PO heartburn Last administered on 21:39; Admin Dose 1,000 MG; Start 01/26/17 at 21:30 SOLOMON DEAL Jan 27, 2017 17:26
--- NOTE | 2017-01-27 17:26 | PN ---
Date/Time of Note Date/Time of Note DATE: 01/27/17 TIME: 17:21 Assessment/Plan VTE Prophylaxis VTE Prophylaxis Intervention: SCD's Lines/Catheters IV Catheter Type (from Nrsg): Peripheral IV Urinary Cath still in place: Yes Reason Cath still needed: urinary retention Assessment/Plan Chief Complaint/Hosp Course Patient is s/p posterior fixation surgery today, using Dilaudid YARD SWITCH OPERATOR. Stable VS. Assessment/Plan -Low back pain and left extremity radiculopathy. Status post anterior lumbar fusion of L3-S1 on 01/23 S/p posterior L3-S1 ISF on 01/[address] Muro. Continue Dilaudid YARD SWITCH OPERATOR for pain and Zofran as needed for nausea. -Hypertension, continue metoprolol. -Obesity with BMI of 36. Further recommendations based on clinical course. Plan of care discussed with Dr. Reaves Problems: Exam/Review of Systems Vital Signs Vitals Vital Signs Date Time Temp Pulse Resp B/P Pulse Ox O2 Delivery O2 Flow Rate FiO2 01/27/17 17:00 16 01/27/17 14:30 73 145/73 97 Room Air 01/27/17 11:45 98.7 01/27/17 10:37 2.0 01/24/17 15:57 21 Intake and Output 01/26/17 01/26/17 01/27/17 15:00 23:00 07:00 Intake Total 950 ml 1575 ml Balance 950 ml 1575 ml Exam Constitutional: alert Head: normocephalic Neck: supple Respiratory: normal air movement Cardiovascular: nl pulses Gastrointestinal: non-tender, other (s/p surgery), soft Extremities: normal pulses Neurological: nl mental status Skin: other (s/p surgery roberto carlos ding JP) Results Result Diagram: 01/27/17 0600 01/27/17 0600 Results 24 hrs Laboratory Tests Test 01/27/17 06:00 White Blood Count 10.4 Red Blood Count 4.40 L Hemoglobin 13.4 L Hematocrit 40.7 L Mean Corpuscular Volume 92.5 Mean Corpuscular Hemoglobin 30.5 Mean Corpuscular Hemoglobin Concent 32.9 Red Cell Distribution Width 11.6 Platelet Count 228 Mean Platelet Volume 10.2 Neutrophils % 70.0 Lymphocytes % 16.8 Monocytes % 11.5 H Eosinophils % 1.0 Basophils % 0.2 Nucleated Red Blood Cells % 0.0 Neutrophils # 7.3 Lymphocytes # 1.8 Monocytes # 1.2 H Eosinophils # 0.1 Basophils # 0.0 Nucleated Red Blood Cells # 0.0 Prothrombin Time 14.0 Prothrombin Time Ratio 1.1 INR International Normalized Ratio 1.08 Activated Partial Thromboplast Time 29.2 Sodium Level 140 Potassium Level 4.4 Chloride Level 104 Carbon Dioxide Level 29 Anion Gap 11 Blood Urea Nitrogen 16 Creatinine 1.14 Glucose Level 102 Calcium Level 8.9 Medications Medications Current Medications Acetaminophen/ Hydrocodone Bitart ([place] (5/325)) 2 tab Q4H PRN PO PAIN LEVEL 6 -10; Start 01/23/17 at 15:30 Docusate Sodium (Colace) 100 mg BID PO Last administered on 01/26/17 20:20; Admin Dose 100 MG; Start 01/23/17 at 15:30 Hydromorphone HCl (Dilaudid YARD SWITCH OPERATOR) Q4PCA IV Last administered on 01/27/17 11: 40; Admin Dose 6 MG; Start 01/23/17 at 15:30 Naloxone HCl 0.2 mg 0.2 mg Q2M PRN IV RR 8 BREATHS/MIN OR LESS; Start at 15:30 Potassium Chloride/Sodium Chloride (NS-KCl 20 Meq) 1,000 ml @ 50 mls/hr Q20H IV Last administered on 01/27/17 05:41; Admin Dose 50 MLS/HR; Start at 15:30 Metoprolol Tartrate (Lopressor) 50 mg BID PO Last administered on 01/27/17 12 :34; Admin Dose 50 MG; Start 01/23/17 at 21:00 Hydralazine HCl (Apresoline) 20 mg Q4H PRN IV SBP > 170 Last administered on 22:39; Admin Dose 20 MG; Start 01/23/17 at 21:00 Calcium Carbonate (Tums) 1,000 mg Q4 PRN PO heartburn Last administered on 21:39; Admin Dose 1,000 MG; Start 01/26/17 at 21:30 SOLOMON DEAL Jan 27, 2017 17:26
--- NOTE | 2017-01-27 19:02 | RADRPT ---
PROCEDURE: CT Lumbar Spine without contrast. CLINICAL INDICATION: Postoperative fusion. TECHNIQUE: Noncontrast CT of the lumbar spine was performed with multiplanar reformatted images gen erated from the axial acquired data. The administered radiation dose was CTDI vol = 75.9 mGy, DLP = 2561.37 mGy-cm. One or more of the following dose reduction techniques were used: Automated exposur e control, Adjustment of the mA and/or kV according to patient size, or Use of iterative reconstruct ion technique. COMPARISON: Noncontrast CT of the lumbar spine from January 24, 2017. FINDINGS: The patient is status post anterior oblique fixation screws at L3-L4, L4-L5, L5-S1. There are interb brennan spacers noted at these levels. Interspinous devices are noted from the L3-L4 to the L5-S1 levels . There is a surgical drain along the left aspect of the spinous processes with tip at the L2-L3 lev el extending into the left posterior subcutaneous soft tissues. There is mild subcutaneous air which is likely postoperative. There is normal lumbar lordosis. The vertebral body heights are maintained. There is normal alignment. There is a stable peripherally sclerotic hypodense region within the left aspect of the L3 vertebral body which may represent a large Schmorl node versus other etiologies. There is no acute fracture. The discs are normal in height. 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 T12-L1 : There is mild to moderate disc space narrowing. There is a 1 mm broad-based disc bulge and mild bilateral facet arthropathy without spinal canal or bilateral foraminal stenosis. This level is unchanged. L1-L2 : There is mild to moderate disc space narrowing. There is a 3 mm broad-based disc osteophyte complex and mild bilateral facet arthropathy without spinal canal stenosis. There is mild to moderat e bilateral foraminal stenosis. This level is unchanged. L2-L3 : There is a 1 mm broad-based disc bulge and mild bilateral facet arthropathy without spinal c anal stenosis. There is mild to moderate bilateral foraminal stenosis. This level is unchanged. L3-L4 : There is an interbody spacer with a circumferential disc bulge and mild bilateral facet arth ropathy ligamentum flavum infolding with streak artifact limiting evaluation. There is approximately mild to moderate spinal canal stenosis. There is mild bilateral foraminal stenosis. This level is u nchanged. L4-L5 : There is an interbody spacer with a circumferential disc bulge and mild bilateral facet arth ropathy ligamentum flavum infolding with streak artifact limiting evaluation. There is approximately moderate spinal canal stenosis. There is moderate foraminal stenosis. This level is unchanged. L5-S1 : There is an interbody spacer with a circumferential disc bulge and mild bilateral facet arth ropathy ligamentum flavum infolding with streak artifact limiting evaluation. There is approximately mild spinal canal stenosis. There is moderate bilateral foraminal stenosis. This level is unchanged . The sacroiliac joints are intact. There are surgical clips within the left pelvis. There is mild flu id within the retroperitoneum/pelvis. IMPRESSION: No significant change. 1. Status post anterior oblique fixation screws at L3-L4, L4-5, and L5-S1. There are interbody spac ers noted at these levels. Interspinous devices are noted from the L3-L4 to the L5-S1 levels. There is a surgical drain again noted. 2. Multilevel degenerative changes most pronounced at L4-L5 where there is an interbody spacer with a circumferential disc bulge and approximately moderate spinal canal stenosis. There is moderate nasima ateral foraminal stenosis. 3. Stable peripherally sclerotic hypodense region within the left aspect of the L3 vertebral body wh ich may represent a large Schmorl node versus other etiologies. 4. No acute fracture. Further findings as detailed above. RPTAT: PP .Jeffrey Potter MD, MD Date Time Electronically viewed and signed by .Jeffrey Potter MD, on 01/27/2017 19:02 .F/
[2017-01-27] MEDS: CYCLOBENZAPRINE 10 MG TAB PO PRN (21:09)
[2017-01-28 00:38] VITALS: BP 129/62; RESP 18
[2017-01-28] MEDS: HYDROmorphONE 0.2 MG/ML PCA IV SCH (01:47)
[2017-01-28] MEDS: NS + KCL 20 MEQ 1,000 ML IV SCH (05:57)
[2017-01-28 07:45] VITALS: BP 134/66; RESP 18
[2017-01-28] MEDS: DOCUSATE SODIUM 100 MG CAP PO SCH ×2 (09:00→09:22)
[2017-01-28] MEDS: METOPROLOL 50 MG TAB PO SCH ×2 (09:22→21:07)
[2017-01-28] MEDS: CYCLOBENZAPRINE 10 MG TAB PO PRN ×2 (09:43→21:07)
--- NOTE | 2017-01-28 11:36 | PN ---
Date/Time of Note Date/Time of Note DATE: 01/28/17 TIME: 11:24 Assessment/Plan VTE Prophylaxis VTE Prophylaxis Intervention: ambulation, SCD's Lines/Catheters IV Catheter Type (from Nrs): Saline Lock Central line still needed: No Urinary Cath still in place: No Assessment/Plan Assessment/Plan impression s/p L3-S1 ALIF . s/p L3-S1 with ISF. POD #[address] lspine stable plan cont supportive care dc neil drain in am dc IVF and fc. IS x 10 discussed with pt and about possible dc Thursday. dc sports medicine trainer Subjective 24 Hr Interval Summary Free Text/Dictation S: s/p posterior L3-S1 ISF. POD #1 s/p L3-S1 ALIF. doing well with pt/ot voiding well Exam/Review of Systems Vital Signs Vitals Vital Signs Date Time Temp Pulse Resp B/P Pulse Ox O2 Delivery O2 Flow Rate FiO2 01/28/17 07:45 98.6 62 18 134/66 98 01/27/17 20:00 Nasal Cannula 2.0 01/24/17 15:57 21 Intake and Output 01/27/17 01/27/17 01/28/17 15:00 23:00 07:00 Intake Total 1200 ml 490 ml 1310 ml Output Total 340 ml 840 ml 2600 ml Balance 860 ml -350 ml -1290 ml Exam Psych: no complaints Neurological: other (MS: AAOX4 CN: PERRL M: FC x 4 , 5/5 strength S: Grossly intact. ) Results Result Diagram: 01/28/17 0450 01/28/17 0450 Results 24 hrs Laboratory Tests Test 01/28/17 04:50 White Blood Count 12.7 #H Red Blood Count 4.06 L Hemoglobin 12.6 L Hematocrit 37.0 L Mean Corpuscular Volume 91.1 Mean Corpuscular Hemoglobin 31.0 Mean Corpuscular Hemoglobin Concent 34.1 Red Cell Distribution Width 11.5 Platelet Count 259 Mean Platelet Volume 10.0 Neutrophils % 72.3 Lymphocytes % 15.4 Monocytes % 11.4 H Eosinophils % 0.2 Basophils % 0.1 Nucleated Red Blood Cells % 0.0 Neutrophils # 9.2 H Lymphocytes # 2.0 Monocytes # 1.5 H Eosinophils # 0.0 Basophils # 0.0 Nucleated Red Blood Cells # 0.0 Sodium Level 139 Potassium Level 4.0 Chloride Level 104 Carbon Dioxide Level 28 Anion Gap 11 Blood Urea Nitrogen 12 Creatinine 0.97 Glucose Level 104 Calcium Level 8.9 Imaging Free Text/Dictation CT Lspine shows good hardware placement anterior and posterior fixation. Medications Medications Current Medications Acetaminophen/ Hydrocodone Bitart ([place] (5/325)) 2 tab Q4H PRN PO PAIN LEVEL 6 -10; Start 01/23/17 at 15:30 Docusate Sodium (Colace) 100 mg BID PO Last administered on 01/26/17 20:20; Admin Dose 100 MG; Start 01/23/17 at 15:30 Hydromorphone HCl (Dilaudid MINERAL ENGINEER) Q4PCA IV Last administered on 01/28/17 01:47 ; Admin Dose 6 MG; Start 01/23/17 at 15:30 Naloxone HCl 0.2 mg 0.2 mg Q2M PRN IV RR 8 BREATHS/MIN OR LESS; Start at 15:30 Potassium Chloride/Sodium Chloride (NS-KCl 20 Meq) 1,000 ml @ 50 mls/hr Q20H IV Last administered on 01/28/17 05:57; Admin Dose 50 MLS/HR; Start 01/23/17 at 15:30 Metoprolol Tartrate (Lopressor) 50 mg BID PO Last administered on 01/28/17 09: 22; Admin Dose 50 MG; Start 01/23/17 at 21:00 Hydralazine HCl (Apresoline) 20 mg Q4H PRN IV SBP > 170 Last administered on 22:39; Admin Dose 20 MG; Start 01/23/17 at 21:00 Calcium Carbonate (Tums) 1,000 mg Q4 PRN PO heartburn Last administered on 21:39; Admin Dose 1,000 MG; Start 01/26/17 at 21:30 Cyclobenzaprine HCl (Flexeril) 10 mg Q6 PRN PO MUSCLE SPASM; Start 01/28/17 at 12:00 HAZEL ACEVEDO NP Jan 28, 2017 11:36
--- NOTE | 2017-01-28 11:36 | PN ---
Date/Time of Note Date/Time of Note DATE: 01/28/17 TIME: 11:24 Assessment/Plan VTE Prophylaxis VTE Prophylaxis Intervention: ambulation, SCD's Lines/Catheters IV Catheter Type (from Nrs): Saline Lock Central line still needed: No Urinary Cath still in place: No Assessment/Plan Assessment/Plan impression s/p L3-S1 ALIF . s/p L3-S1 with ISF. POD #[address] lspine stable plan cont supportive care dc neil drain in am dc IVF and fc. IS x 10 discussed with pt and about possible dc Thursday. dc real estate loan officer Subjective 24 Hr Interval Summary Free Text/Dictation S: s/p posterior L3-S1 ISF. POD #1 s/p L3-S1 ALIF. doing well with pt/ot voiding well Exam/Review of Systems Vital Signs Vitals Vital Signs Date Time Temp Pulse Resp B/P Pulse Ox O2 Delivery O2 Flow Rate FiO2 01/28/17 07:45 98.6 62 18 134/66 98 01/27/17 20:00 Nasal Cannula 2.0 01/24/17 15:57 21 Intake and Output 01/27/17 01/27/17 01/28/17 15:00 23:00 07:00 Intake Total 1200 ml 490 ml 1310 ml Output Total 340 ml 840 ml 2600 ml Balance 860 ml -350 ml -1290 ml Exam Psych: no complaints Neurological: other (MS: AAOX4 CN: PERRL M: FC x 4 , 5/5 strength S: Grossly intact. ) Results Result Diagram: 01/28/17 0450 01/28/17 0450 Results 24 hrs Laboratory Tests Test 01/28/17 04:50 White Blood Count 12.7 #H Red Blood Count 4.06 L Hemoglobin 12.6 L Hematocrit 37.0 L Mean Corpuscular Volume 91.1 Mean Corpuscular Hemoglobin 31.0 Mean Corpuscular Hemoglobin Concent 34.1 Red Cell Distribution Width 11.5 Platelet Count 259 Mean Platelet Volume 10.0 Neutrophils % 72.3 Lymphocytes % 15.4 Monocytes % 11.4 H Eosinophils % 0.2 Basophils % 0.1 Nucleated Red Blood Cells % 0.0 Neutrophils # 9.2 H Lymphocytes # 2.0 Monocytes # 1.5 H Eosinophils # 0.0 Basophils # 0.0 Nucleated Red Blood Cells # 0.0 Sodium Level 139 Potassium Level 4.0 Chloride Level 104 Carbon Dioxide Level 28 Anion Gap 11 Blood Urea Nitrogen 12 Creatinine 0.97 Glucose Level 104 Calcium Level 8.9 Imaging Free Text/Dictation CT Lspine shows good hardware placement anterior and posterior fixation. Medications Medications Current Medications Acetaminophen/ Hydrocodone Bitart ([place] (5/325)) 2 tab Q4H PRN PO PAIN LEVEL 6 -10; Start 01/23/17 at 15:30 Docusate Sodium (Colace) 100 mg BID PO Last administered on 01/26/17 20:20; Admin Dose 100 MG; Start 01/23/17 at 15:30 Hydromorphone HCl (Dilaudid LEAD WORKER OF HOUSEKEEPING AND LAUNDRY) Q4PCA IV Last administered on 01/28/17 01:47 ; Admin Dose 6 MG; Start 01/23/17 at 15:30 Naloxone HCl 0.2 mg 0.2 mg Q2M PRN IV RR 8 BREATHS/MIN OR LESS; Start at 15:30 Potassium Chloride/Sodium Chloride (NS-KCl 20 Meq) 1,000 ml @ 50 mls/hr Q20H IV Last administered on 01/28/17 05:57; Admin Dose 50 MLS/HR; Start 01/23/17 at 15:30 Metoprolol Tartrate (Lopressor) 50 mg BID PO Last administered on 01/28/17 09: 22; Admin Dose 50 MG; Start 01/23/17 at 21:00 Hydralazine HCl (Apresoline) 20 mg Q4H PRN IV SBP > 170 Last administered on 22:39; Admin Dose 20 MG; Start 01/23/17 at 21:00 Calcium Carbonate (Tums) 1,000 mg Q4 PRN PO heartburn Last administered on 21:39; Admin Dose 1,000 MG; Start 01/26/17 at 21:30 Cyclobenzaprine HCl (Flexeril) 10 mg Q6 PRN PO MUSCLE SPASM; Start 01/28/17 at 12:00 HAZEL ACEVEDO NP Jan 28, 2017 11:36
[2017-01-28] MEDS ORDERED: HYDROmorphONE 1 MG/ML SYG IV PRN (12:00)
--- NOTE | 2017-01-28 14:34 | PN ---
Date/Time of Note Date/Time of Note DATE: 01/28/17 TIME: 14:33 Assessment/Plan VTE Prophylaxis VTE Prophylaxis Intervention: SCD's Lines/Catheters IV Catheter Type (from Nrs): Saline Lock Urinary Cath still in place: No Assessment/Plan Chief Complaint/Hosp Course Patient is s/p posterior fixation surgery yesterday, using Dilaudid PIE CRUST MIXER for pain. Pt get out of bed with physical therapy. Assessment/Plan -Low back pain and left extremity radiculopathy. Status post anterior lumbar fusion of L3-S1 on 01/23 S/p posterior L3-S1 ISF on 01/[address] Muro. Continue Dilaudid PIE CRUST MIXER for pain and Zofran as needed for nausea. -Hypertension, continue metoprolol. -Obesity with BMI of 36. Further recommendations based on clinical course. Plan of care discussed with Dr. Reaves Problems: Exam/Review of Systems Vital Signs Vitals Vital Signs Date Time Temp Pulse Resp B/P Pulse Ox O2 Delivery O2 Flow Rate FiO2 01/28/17 07:45 98.6 62 18 134/66 98 01/27/17 20:00 Nasal Cannula 2.0 01/24/17 15:57 21 Intake and Output 01/27/17 01/27/17 01/28/17 15:00 23:00 07:00 Intake Total 1200 ml 490 ml 1310 ml Output Total 340 ml 840 ml 2600 ml Balance 860 ml -350 ml -1290 ml Exam Constitutional: alert Head: normocephalic Neck: supple Respiratory: normal air movement Cardiovascular: nl pulses Gastrointestinal: non-tender, other (s/p surgery), soft Extremities: normal pulses Neurological: nl mental status Skin: other (s/p surgery roberto carlos ding JP) Results Result Diagram: 01/28/1744901/28/17449 Results 24 hrs Laboratory Tests Test 01/28/17 04:50 White Blood Count 12.7 #H Red Blood Count 4.06 L Hemoglobin 12.6 L Hematocrit 37.0 L Mean Corpuscular Volume 91.1 Mean Corpuscular Hemoglobin 31.0 Mean Corpuscular Hemoglobin Concent 34.1 Red Cell Distribution Width 11.5 Platelet Count 259 Mean Platelet Volume 10.0 Neutrophils % 72.3 Lymphocytes % 15.4 Monocytes % 11.4 H Eosinophils % 0.2 Basophils % 0.1 Nucleated Red Blood Cells % 0.0 Neutrophils # 9.2 H Lymphocytes # 2.0 Monocytes # 1.5 H Eosinophils # 0.0 Basophils # 0.0 Nucleated Red Blood Cells # 0.0 Sodium Level 139 Potassium Level 4.0 Chloride Level 104 Carbon Dioxide Level 28 Anion Gap 11 Blood Urea Nitrogen 12 Creatinine 0.97 Glucose Level 104 Calcium Level 8.9 Medications Medications Current Medications Potassium Chloride/Sodium Chloride (NS-KCl 20 Meq) 1,000 ml @ 50 mls/hr Q20H IV Last administered on 01/28/17 05:57; Admin Dose 50 MLS/HR; Start 01/23/17 at 15:30 Metoprolol Tartrate (Lopressor) 50 mg BID PO Last administered on 01/28/17 09: 22; Admin Dose 50 MG; Start 01/23/17 at 21:00 Hydralazine HCl (Apresoline) 20 mg Q4H PRN IV SBP > 170 Last administered on 22:39; Admin Dose 20 MG; Start 01/23/17 at 21:00 Calcium Carbonate (Tums) 1,000 mg Q4 PRN PO heartburn Last administered on 21:39; Admin Dose 1,000 MG; Start 01/26/17 at 21:30 Cyclobenzaprine HCl (Flexeril) 10 mg Q6 PRN PO MUSCLE SPASM; Start 01/28/17 at 12:00 Acetaminophen/ Hydrocodone Bitart ([place] (10/325)) 1 tab Q4H PRN PO PAIN; Start 01/28/17 at 12:00 Hydromorphone HCl (Dilaudid) 1 mg Q4H PRN IV pain; Start 01/28/17 at 12:00 SOLOMON DEAL Jan 28, 2017 14:34
--- NOTE | 2017-01-28 14:34 | PN ---
Date/Time of Note Date/Time of Note DATE: 01/28/17 TIME: 14:33 Assessment/Plan VTE Prophylaxis VTE Prophylaxis Intervention: SCD's Lines/Catheters IV Catheter Type (from Nrs): Saline Lock Urinary Cath still in place: No Assessment/Plan Chief Complaint/Hosp Course Patient is s/p posterior fixation surgery yesterday, using Dilaudid WASHER MEAT for pain. Pt get out of bed with physical therapy. Assessment/Plan -Low back pain and left extremity radiculopathy. Status post anterior lumbar fusion of L3-S1 on 01/23 S/p posterior L3-S1 ISF on 01/[address] Muro. Continue Dilaudid WASHER MEAT for pain and Zofran as needed for nausea. -Hypertension, continue metoprolol. -Obesity with BMI of 36. Further recommendations based on clinical course. Plan of care discussed with Dr. Reaves Problems: Exam/Review of Systems Vital Signs Vitals Vital Signs Date Time Temp Pulse Resp B/P Pulse Ox O2 Delivery O2 Flow Rate FiO2 01/28/17 07:45 98.6 62 18 134/66 98 01/27/17 20:00 Nasal Cannula 2.0 01/24/17 15:57 21 Intake and Output 01/27/17 01/27/17 01/28/17 15:00 23:00 07:00 Intake Total 1200 ml 490 ml 1310 ml Output Total 340 ml 840 ml 2600 ml Balance 860 ml -350 ml -1290 ml Exam Constitutional: alert Head: normocephalic Neck: supple Respiratory: normal air movement Cardiovascular: nl pulses Gastrointestinal: non-tender, other (s/p surgery), soft Extremities: normal pulses Neurological: nl mental status Skin: other (s/p surgery roberto carlos ding JP) Results Result Diagram: 01/28/1744901/28/17449 Results 24 hrs Laboratory Tests Test 01/28/17 04:50 White Blood Count 12.7 #H Red Blood Count 4.06 L Hemoglobin 12.6 L Hematocrit 37.0 L Mean Corpuscular Volume 91.1 Mean Corpuscular Hemoglobin 31.0 Mean Corpuscular Hemoglobin Concent 34.1 Red Cell Distribution Width 11.5 Platelet Count 259 Mean Platelet Volume 10.0 Neutrophils % 72.3 Lymphocytes % 15.4 Monocytes % 11.4 H Eosinophils % 0.2 Basophils % 0.1 Nucleated Red Blood Cells % 0.0 Neutrophils # 9.2 H Lymphocytes # 2.0 Monocytes # 1.5 H Eosinophils # 0.0 Basophils # 0.0 Nucleated Red Blood Cells # 0.0 Sodium Level 139 Potassium Level 4.0 Chloride Level 104 Carbon Dioxide Level 28 Anion Gap 11 Blood Urea Nitrogen 12 Creatinine 0.97 Glucose Level 104 Calcium Level 8.9 Medications Medications Current Medications Potassium Chloride/Sodium Chloride (NS-KCl 20 Meq) 1,000 ml @ 50 mls/hr Q20H IV Last administered on 01/28/17 05:57; Admin Dose 50 MLS/HR; Start 01/23/17 at 15:30 Metoprolol Tartrate (Lopressor) 50 mg BID PO Last administered on 01/28/17 09: 22; Admin Dose 50 MG; Start 01/23/17 at 21:00 Hydralazine HCl (Apresoline) 20 mg Q4H PRN IV SBP > 170 Last administered on 22:39; Admin Dose 20 MG; Start 01/23/17 at 21:00 Calcium Carbonate (Tums) 1,000 mg Q4 PRN PO heartburn Last administered on 21:39; Admin Dose 1,000 MG; Start 01/26/17 at 21:30 Cyclobenzaprine HCl (Flexeril) 10 mg Q6 PRN PO MUSCLE SPASM; Start 01/28/17 at 12:00 Acetaminophen/ Hydrocodone Bitart ([place] (10/325)) 1 tab Q4H PRN PO PAIN; Start 01/28/17 at 12:00 Hydromorphone HCl (Dilaudid) 1 mg Q4H PRN IV pain; Start 01/28/17 at 12:00 SOLOMON DEAL Jan 28, 2017 14:34
[2017-01-28] MEDS: HYDROCODONE/APAP (10/325) TAB PO PRN ×2 (16:41→22:43)
[2017-01-28 19:30] VITALS: BP 133/69; RESP 18
[2017-01-29] MEDS: NS + KCL 20 MEQ 1,000 ML IV SCH ×2 (01:00→21:00)
[2017-01-29 02:10] VITALS: BP 133/74; RESP 18
[2017-01-29] MEDS: CYCLOBENZAPRINE 10 MG TAB PO PRN ×3 (04:44→21:42)
[2017-01-29 08:06] VITALS: BP 129/66; RESP 20
[2017-01-29] MEDS: METOPROLOL 50 MG TAB PO SCH ×2 (08:14→20:11)
--- NOTE | 2017-01-29 12:23 | PN ---
Date/Time of Note Date/Time of Note DATE: 01/29/17 TIME: 12:18 Assessment/Plan VTE Prophylaxis VTE Prophylaxis Intervention: SCD's Lines/Catheters IV Catheter Type (from Nrsg): Saline Lock Central line still needed: No Urinary Cath still in place: No Assessment/Plan Assessment/Plan impression s/p ALIF and posterior fixation L3-S1. doing well with pt/ot low grade temp improving plan cont supportive care pt/ot IS x 10 dc neil drain okay to dc from NS point of view in am if stable overnight follow up in 2 weeks ([phone] lso brace x 6 weeks - d/w pt and at bedside Prescriptions for flexeril, norco, and colace in chart. Subjective 24 Hr Interval Summary Free Text/Dictation S: doing well with pt/ot no complaints of LE radic pain surgical sites: CDI NEIL with minimal drainage Exam/Review of Systems Vital Signs Vitals Vital Signs Date Time Temp Pulse Resp B/P Pulse Ox O2 Delivery O2 Flow Rate FiO2 01/29/17 08:06 98.0 76 20 129/66 99 01/27/17 20:00 Nasal Cannula 2.0 Intake and Output 01/28/17 01/28/17 01/29/17 15:00 23:00 07:00 Intake Total 1990 ml 1400 ml Output Total 1330 ml 1220 ml Balance 660 ml 180 ml Exam Neurological: other (MS: AAOX4 CN: PERRL M: 5/5 strength x 4 ) Results Result Diagram: 01/29/17 0449 01/29/179 Results 24 hrs Laboratory Tests Test 01/29/17 04:49 White Blood Count 9.4 # Red Blood Count 4.33 L Hemoglobin 13.3 L Hematocrit 40.3 L Mean Corpuscular Volume 93.1 Mean Corpuscular Hemoglobin 30.7 Mean Corpuscular Hemoglobin Concent 33.0 Red Cell Distribution Width 11.6 Platelet Count 270 Mean Platelet Volume 9.8 Neutrophils % 60.8 Lymphocytes % 24.5 Monocytes % 12.1 H Eosinophils % 1.2 Basophils % 0.3 Nucleated Red Blood Cells % 0.0 Neutrophils # 5.7 Lymphocytes # 2.3 Monocytes # 1.1 H Eosinophils # 0.1 Basophils # 0.0 Nucleated Red Blood Cells # 0.0 Sodium Level 140 Potassium Level 3.8 Chloride Level 99 Carbon Dioxide Level 31 Anion Gap 14 Blood Urea Nitrogen 14 Creatinine 1.15 Glucose Level 98 Calcium Level 8.8 Medications Medications Current Medications Potassium Chloride/Sodium Chloride (NS-KCl 20 Meq) 1,000 ml @ 50 mls/hr Q20H IV Last administered on 01/28/17 05:57; Admin Dose 50 MLS/HR; Start 01/23/17 at 15:30 Metoprolol Tartrate (Lopressor) 50 mg BID PO Last administered on 01/29/17 08: 14; Admin Dose 50 MG; Start 01/23/17 at 21:00 Hydralazine HCl (Apresoline) 20 mg Q4H PRN IV SBP > 170 Last administered on 22:39; Admin Dose 20 MG; Start 01/23/17 at 21:00 Calcium Carbonate (Tums) 1,000 mg Q4 PRN PO heartburn Last administered on 21:39; Admin Dose 1,000 MG; Start 01/26/17 at 21:30 Cyclobenzaprine HCl (Flexeril) 10 mg Q6 PRN PO MUSCLE SPASM Last administered on 01/29/17 04:44; Admin Dose 10 MG; Start 01/28/17 at 12:00 Acetaminophen/ Hydrocodone Bitart ([place] (10/325)) 1 tab Q4H PRN PO PAIN Last administered on 01/28/17 22:43; Admin Dose 1 TAB; Start 01/28/17 at 12:00 Hydromorphone HCl (Dilaudid) 1 mg Q4H PRN IV pain; Start 01/28/17 at 12:00 HAZEL ACEVEDO NP Jan 29, 2017 12:23
[2017-01-29 14:00] VITALS: BP 130/70; RESP 18
--- NOTE | 2017-01-29 16:57 | PN ---
Date/Time of Note Date/Time of Note DATE: 01/29/17 TIME: 16:56 Assessment/Plan Lines/Catheters IV Catheter Type (from Nrsg): Saline Lock Urinary Cath still in place: No Assessment/Plan Assessment/Plan -Low back pain and left extremity radiculopathy. Status post anterior lumbar fusion of L3-S1 on 01/23 S/p posterior L3-S1 ISF on 01/[address] Muro. Continue Dilaudid TRAFFIC POLICE OFFICER for pain and Zofran as needed for nausea. -Hypertension, continue metoprolol. -Obesity with BMI of 36. Anticipate discharge tomorrow if no clinical issues. Further recommendations based on clinical course. Plan of care discussed with Dr. Reaves Exam/Review of Systems Vital Signs Vitals Vital Signs Date Time Temp Pulse Resp B/P Pulse Ox O2 Delivery O2 Flow Rate FiO2 01/29/17 08:06 98.0 76 20 129/66 99 01/27/17 20:00 Nasal Cannula 2.0 Intake and Output 01/28/17 01/28/17 01/29/17 15:00 23:00 07:00 Intake Total 1990 ml 1400 ml Output Total 1330 ml 1220 ml Balance 660 ml 180 ml Results Result Diagram: 01/29/17 0449 01/29/17 0449 Results 24 hrs Laboratory Tests Test 01/29/17 04:49 White Blood Count 9.4 # Red Blood Count 4.33 L Hemoglobin 13.3 L Hematocrit 40.3 L Mean Corpuscular Volume 93.1 Mean Corpuscular Hemoglobin 30.7 Mean Corpuscular Hemoglobin Concent 33.0 Red Cell Distribution Width 11.6 Platelet Count 270 Mean Platelet Volume 9.8 Neutrophils % 60.8 Lymphocytes % 24.5 Monocytes % 12.1 H Eosinophils % 1.2 Basophils % 0.3 Nucleated Red Blood Cells % 0.0 Neutrophils # 5.7 Lymphocytes # 2.3 Monocytes # 1.1 H Eosinophils # 0.1 Basophils # 0.0 Nucleated Red Blood Cells # 0.0 Sodium Level 140 Potassium Level 3.8 Chloride Level 99 Carbon Dioxide Level 31 Anion Gap 14 Blood Urea Nitrogen 14 Creatinine 1.15 Glucose Level 98 Calcium Level 8.8 Medications Medications Current Medications Potassium Chloride/Sodium Chloride (NS-KCl 20 Meq) 1,000 ml @ 50 mls/hr Q20H IV Last administered on 01/28/17t 05:57; Admin Dose 50 MLS/HR; Start 01/23/17 at 15:30 Metoprolol Tartrate (Lopressor) 50 mg BID PO Last administered on 01/29/17 08: 14; Admin Dose 50 MG; Start 01/23/17 at 21:00 Hydralazine HCl (Apresoline) 20 mg Q4H PRN IV SBP > 170 Last administered on 22:39; Admin Dose 20 MG; Start 01/23/17 at 21:00 Calcium Carbonate (Tums) 1,000 mg Q4 PRN PO heartburn Last administered on 21:39; Admin Dose 1,000 MG; Start 01/26/17 at 21:30 Cyclobenzaprine HCl (Flexeril) 10 mg Q6 PRN PO MUSCLE SPASM Last administered on 01/29/17 14:41; Admin Dose 10 MG; Start 01/28/17 at 12:00 Acetaminophen/ Hydrocodone Bitart ([place] (10/325)) 1 tab Q4H PRN PO PAIN Last administered on 01/28/17 22:43; Admin Dose 1 TAB; Start 01/28/17 at 12:00 Hydromorphone HCl (Dilaudid) 1 mg Q4H PRN IV pain; Start 01/28/17 at 12:00 CARMEN FLOWERS Jan 29, 2017 16:57
[2017-01-29 19:35] VITALS: BP 133/75; RESP 18
[2017-01-30] MEDS: HYDROCODONE/APAP (10/325) TAB PO PRN (00:50)
[2017-01-30 02:05] VITALS: BP 138/74; RESP 18
[2017-01-30 08:12] VITALS: BP 127/66; RESP 18
[2017-01-30] MEDS: METOPROLOL 50 MG TAB PO SCH (08:32)
--- NOTE | 2017-01-30 21:52 | DS ---
Date/Time of Note Date/Time of Note DATE: 01/30/17 TIME: 21:46 Discharge Summary Admission/Discharge Info Admit Date/Time Jan 23, 2017 at 12:11 Discharge Date/Time Jan 30, 2017 at 12:09 Patient Condition: Stable Hospital Course -Low back pain and left extremity radiculopathy. Status post anterior lumbar fusion of L3-S1 on 01/23 S/p posterior L3-S1 ISF on 01/[address] Muro. D/sherman with home health PT and prescriptions for [place], Flexeril, and Colace from Dr Muro. -Hypertension, continue metoprolol. -Obesity with BMI of 36. Home Meds No Active Prescriptions or Reported Meds Follow-up Plan F/up with Dr Muro in 1 week. Can change dressing to the back, apply 4x4/ tegaderm. Patient may shower on Thursday. Primary Care Provider Rodney Do Time spent on discharge: > 30 minutes SOLOMON DEAL Jan 30, 2017 21:52
== END 2017-01-30 12:09 | disposition home health service (06) | DRG 455 ==
LOC: REC 12:11 → EDSTATUS 14:00 → EDBD 14:00 → ICU 19:41 → MS1 01-24 19:00
PROVIDERS: ADMIT Neurological Surgery; ATTEND Neurological Surgery
PROC: 0SG30A0 Fusion of Lumbosacral Joint with Interbody Fusion Device, Anterior Approach, Anterior Column, Open Approach (ICD-10-PCS; 2017-01-23)
PROC: 0ST20ZZ Resection of Lumbar Vertebral Disc, Open Approach (ICD-10-PCS; 2017-01-23)
PROC: 0ST40ZZ Resection of Lumbosacral Disc, Open Approach (ICD-10-PCS; 2017-01-23)
PROC: 0SG10A0 Fusion of 2 or more Lumbar Vertebral Joints with Interbody Fusion Device, Anterior Approach, Anterior Column, Open Approach (ICD-10-PCS; principal; 2017-01-23 14:00)
PROC: 0SG3071 Fusion of Lumbosacral Joint with Autologous Tissue Substitute, Posterior Approach, Posterior Column, Open Approach (ICD-10-PCS; 2017-01-27)
PROC: 0SG1071 Fusion of 2 or more Lumbar Vertebral Joints with Autologous Tissue Substitute, Posterior Approach, Posterior Column, Open Approach (ICD-10-PCS; 2017-01-27)
DX: M47.26 Other spondylosis with radiculopathy, lumbar region (principal); E66.01 Morbid (severe) obesity due to excess calories; I10 Essential (primary) hypertension; E88.2 Lipomatosis, not elsewhere classified; M51.37 Other intervertebral disc degeneration, lumbosacral region; M51.36 Other intervertebral disc degeneration, lumbar region; M51.26 Other intervertebral disc displacement, lumbar region; M51.27 Other intervertebral disc displacement, lumbosacral region; Z68.36 Body mass index [BMI] 36.0-36.9, adult
CPT/HCPCS: 71010; 72100; 72131; 80048; 82962; 85014; 85018; 85025; 85610; 85730; 86850; 86900; 86901; 87081; 87086; 88304; 88307; 93005; 94664; 97116; 97161; 97162; 97530; C1762; J0360; J0690; J1100; J1170; J1644; J2175; J2250; J2270; J2370; J2405; J2710; J2765; J2795; J3010; J3480; L0639